=== PATIENT | female | born 1955 | race Two or more races ===

== ENCOUNTER 2017-10-03 13:32 | Outpatient (RCR) | payer MEDICARE, OTHER | END 2017-10-04 | disposition home or self-care (01) | LOC: WCC 13:32 | DX: I70.262 Atherosclerosis of native arteries of extremities with gangrene, left leg (principal); Z87.891 Personal history of nicotine dependence; E11.9 Type 2 diabetes mellitus without complications; I10 Essential (primary) hypertension; Z89.422 Acquired absence of other left toe(s) | CPT/HCPCS: G0463 ==